=== PATIENT | female | born 1985 | race African-American/Black ===

== ENCOUNTER 2017-04-09 19:57 | Emergency (ER) | payer OTHER, SELFPAY ==
[2017-04-09 21:08] LABS: #Basophils 0.1 thou/uL (0.0-0.2); #Eosinphils 0.2 thou/uL (0.0-0.7); #Lymphocytes 4.4 thou/uL (1.20-3.40); #Monocytes 0.8 thou/uL (0.11-0.59); #Neutrophils 7.5 thou/uL (1.40-6.50); %Basophils 0.6 % (0.0-1.0); %Eosinophils 1.3 % (0.0-10.0); %Lymphocytes 34.3 % (21.0-51.0); %Monocytes 6.1 % (0.0-10.0); %Neutrophils 57.7 % (42.0-75.0); Mean Corpuscular HGB CONC 31.1 g/dL (32.0-36.0); Mean Corpuscular Hemoglobin 27.1 pg (27.0-31.0); Mean Platelet Volume 8.5 fL (7.4-10.4); Platelet Count 231 thou/uL (130-400); RBC Distribution Width 13.9 % (11.5-14.5); Red Blood Cell (RBC) Count 4.07 mill/uL (4.20-5.40)
[2017-04-09 21:11] LABS: Anion Gap 16 mmol/L (10-20); BUN (Urea Nitrogen) 13 mg/dL (7.0-18.7); Bilirubin, Total 0.1 mg/dL (0.2-1.2); Calc. Creatinine Clearance 0 mL/min (70-130); Calcium 9.6 mg/dL (7.8-10.44); Carbon Dioxide 19 mmol/L (22-29); Chloride 106 mmol/L (98-107); Estimated GFR-MDRD 88; Globulin 4.5 g/dL (2.4-3.5); Glucose 87 mg/dL (70-105); Potassium 3.9 mmol/L (3.5-5.1); Protein, Total 8.5 g/dL (6.0-8.3); Sodium 137 mmol/L (136-145)
[2017-04-09 21:12] LABS: ALT (SGPT) 10 U/L (8-55); AST (SGOT) 19 U/L (5-34); Alkaline Phosphatase 56 U/L (40-150)
== END 2017-04-09 21:12 | disposition left against medical advice (07) ==
LOC: NAV ERS 19:57
DX: O62.9 Abnormality of forces of labor, unspecified (principal); Z3A.38 38 weeks gestation of pregnancy
CPT/HCPCS: 80053; 85025; 99284